=== PATIENT | female | born 1995 | race Caucasian/White ===

== ENCOUNTER 2024-02-24 15:47 | Outpatient (AMB) | payer OTHER, SELFPAY ==
[2024-02-24 16:00] VITALS: BP 122/76; PULSE 76; TEMP 36.8; O2SAT 98; BMI 35.1
--- NOTE | 2024-02-24 16:00 | MHC.PC.OV ---
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
--- NOTE | 2024-02-24 16:06 | AM.OFFWIN_ITS ---
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 Patient Tobacco Use Status: Never used Tobacco Allergies No Known Allergies Allergy (Verified 02/24/24 16:05) Do you need a note to return to daycare/school/sports/work: No HPI HPI Comments History of Present Illness Details The patient presents to urgent care for evaluation of a puncture wound. She was at work today and had some Exacto blade in a pouch that she was wearing on her waist and when she leaned forward to bend for something the exact knife cut through the pouch and stopped her in the right thigh. There was some bleeding. No other injuries. Last tetanus in 2018 [facility] Medical History (Updated 02/24/24 @ 16:20 by Florinda Briseno DO) Puncture wound Social History Patient Tobacco Use Status: Never used Tobacco Physical Exam Vital Signs: Last Vital Signs Temp 98.2 F 02/24/24 16:00 Pulse 76 02/24/24 16:00 BP 122/76 02/24/24 16:00 Pulse Ox 98 02/24/24 16:00 Oxygen Delivery Method Room Air 02/24/24 16:00 BMI result Body Mass Index 35.1 Const General: healthy appearing and no acute distress Orientation/consciousness: patient oriented x3 Eyes Corneas: corneas normal Pupils: Equal, round and reactive pupils present Resp Effort & Inspection: normal respiratory effort and able to speak in complete sentences Skin Other: Right thigh: Small puncture wound approximately 3 mm in length. Minimal active bleeding does not extend through the full-thickness of the epidermis. No surro unding erythema edema or abrasion Neuro General: patient oriented x3 Cranial nerves: Yes Equal, round and reactive pupils present Psych Appearance: grossly normal Attitude: cooperative Assessment & Plan Assessment & Plan (1) Puncture wound: Code(s): T14.8XXA - Other injury of unspecified body region, initial encounter Plan Wound is clean no sign of infection bandage applied no sutures or Dermabond needed. Very superficial. Patient does require a Tdap booster however we do not have any at this facility. Patient was advised to check in at a local pharmacy [facility] or [place] as they likely have this. Orders: Orders TDaP Immunization Today T14.8XXA - Other injury of unspecified body region, initial encounter, Z23 - Encounter for immunization Medications: New Boostrix Tdap (diphth,pertus(acell),tetanus) 0.5 mL IM ONCE 0.5 mL 0RF NS T14.8XXA - Other injury of unspecified body region, initial encounter, Z23 - Encounter for immunization Coding Level of Care Code Est Pt Level 3 (44148) Diagnoses Puncture wound T14.8XXA
== END 2024-02-24 17:01 | disposition home or self-care (01) ==
PROVIDERS: Visit Provider Emergency Medicine
DX: T14.8XXA Other injury of unspecified body region, initial encounter (principal)
CPT/HCPCS: 99213